=== PATIENT | female | born 1945 | race Caucasian/White ===

== ENCOUNTER 2016-10-03 | Inpatient (IN) | payer MEDICARE, OTHER ==
[~2016-10-03] MED LIST: ADULT ASPIRIN81 MG; ALDACTONE50 M1 PO; AMLODIPINE BESYLATE; ANTIVERT25 MG PO; ATORVASTATIN CALCIUM; CALCIUM CARBON600 M2 PO; CALCIUM500 M1 PO; CALTRATE 600 +1 EAC2 PO; CEPHALEXIN500 M1 PO; CYMBALTA60 M1 PO; DIAZEPAM; GABAPENTIN300 MG PO; GLEEVEC PO; GLUCOPHAGE500 M3 PO; HUMALOG; HYDROCODONE/APA1 CAP; INSULIN PUMP; INSULIN PUMP1 EACH; LANTUS100 U/ML; LANTUS100 U/ML SC; LEVAQUIN500 MG PO; LIPITOR20 MG PO; LISINOPRIL20 MG PO; LOTREL 10/20 MG1 CAP; LOVASTATIN20 M2 PO; NORVASC10 M2 PO; NORVASC10 MG PO; NOVOLOG; NOVOLOG100 U/M SQ; PERCOCET 5-3251 EACH PO; PERCOCET 5/3251 TAB PO; PROTONIX40 M1 PO; PROTONIX40 M2 PO; SPIRONOLACTONE1 EACH PO; SYNTHROID; SYNTHROID150 MC1 PO; SYNTHROID150 MCG; SYNTHROID150 MCG PO; SYNTHROID175 MC1 PO; SYNTHROID175 MCG PO; VITAMIN D10000 UNI1 PO; VITAMIN D2000 UNIT PO; ZANAFLEX4 M2 PO; ZOLOFT; ZOLOFT100 MG PO; [UNRECOGNIZED DRUG - CODE] PO; [UNRECOGNIZED DRUG - OTHER]; [UNRECOGNIZED DRUG - OTHER] PO
[2016-10-09] MEDS ORDERED: NORCO 5-325 TA1 EACH PO (11:26)
[2016-10-09] MEDS ORDERED: KEFLEX500 M4 PO (11:26)
[2016-10-09] MEDS ORDERED: SULFAMYLON SOL250 M1 EXT (11:28)
[2016-11-04] MEDS ORDERED: LOPERAMIDE2 M2 PO (12:49)
== END 2016-10-09 13:10 | DRG 854 ==
DX: A41.9 Sepsis, unspecified organism (principal); L03.116 Cellulitis of left lower limb; C92.10 Chronic myeloid leukemia, BCR/ABL-positive, not having achieved remission; E11.22 Type 2 diabetes mellitus with diabetic chronic kidney disease; E11.40 Type 2 diabetes mellitus with diabetic neuropathy, unspecified; M86.8X7 Other osteomyelitis, ankle and foot; D62 Acute posthemorrhagic anemia; L02.612 Cutaneous abscess of left foot; B95.1 Streptococcus, group B, as the cause of diseases classified elsewhere; D63.8 Anemia in other chronic diseases classified elsewhere; E11.621 Type 2 diabetes mellitus with foot ulcer; L97.529 Non-pressure chronic ulcer of other part of left foot with unspecified severity; I12.9 Hypertensive chronic kidney disease with stage 1 through stage 4 chronic kidney disease, or unspecified chronic kidney disease; N18.2 Chronic kidney disease, stage 2 (mild); E78.5 Hyperlipidemia, unspecified; E03.9 Hypothyroidism, unspecified; Z79.4 Long term (current) use of insulin; Z85.3 Personal history of malignant neoplasm of breast; Z85.42 Personal history of malignant neoplasm of other parts of uterus; M19.90 Unspecified osteoarthritis, unspecified site; K21.9 Gastro-esophageal reflux disease without esophagitis; E55.9 Vitamin D deficiency, unspecified; Z88.8 Allergy status to other drugs, medicaments and biological substances; E11.65 Type 2 diabetes mellitus with hyperglycemia

== ENCOUNTER 2016-11-08 11:05 | Emergency (ER) | payer MEDICARE, OTHER ==
[~2016-11-08 11:05] MED LIST changes: +KEFLEX500 M4 PO; +LOPERAMIDE2 M2 PO; +NORCO 5-325 TA1 EACH PO; +SULFAMYLON SOL250 M1 EXT
[2016-11-08] MEDS ORDERED: CEFAZOLIN2 GM/20 M1 IV (13:32)
== END 2016-11-08 15:10 ==
LOC: EDMED 11:05
PROC: 05H633Z Insertion of Infusion Device into Left Subclavian Vein, Percutaneous Approach (ICD-10-PCS; principal; 2016-11-08)
DX: T82.594A Other mechanical complication of infusion catheter, initial encounter (principal); E11.9 Type 2 diabetes mellitus without complications; Z79.4 Long term (current) use of insulin; Z79.899 Other long term (current) drug therapy
CPT/HCPCS: C1751